=== PATIENT | female | born 2000 | race African-American/Black ===

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

== ENCOUNTER 2018-09-19 22:19 | Emergency (ER) | payer MEDICAID, OTHER ==
[2018-09-19] MEDS ORDERED: Ondansetron ODT 4 MG TAB ONE (22:45)
[2018-09-19] MEDS ORDERED: Loperamide HCl 2 MG CAP ONE (22:54)
[2018-09-19 23:06] LABS: Pregu Control Background? CLEAR/WHITE (CLR/WHITE); Pregu Control Bar Appear? YES (CONTROL BAR)
[2018-09-19 23:07] LABS: Pregnancy Test - Urine (BHCG) Negative (Negative)
== END 2018-09-19 23:15 | disposition home or self-care (01) ==
LOC: NAV ERS 22:19
DX: R11.2 Nausea with vomiting, unspecified (principal); R19.7 Diarrhea, unspecified; I10 Essential (primary) hypertension
CPT/HCPCS: 81025; 96374; Q0162

== ENCOUNTER 2018-10-12 09:46 | Emergency (ER) | payer OTHER ==
[2018-10-12] MEDS ORDERED: Ibuprofen 800 MG TAB ONE (10:53)
[2018-10-12] MEDS ORDERED: Benzonatate 100 MG CAP ONE (10:54)
== END 2018-10-12 11:46 | disposition home or self-care (01) ==
LOC: NAV ERS 09:46
DX: B34.9 Viral infection, unspecified (principal)
CPT/HCPCS: 87081; 87430; 99283

== ENCOUNTER 2018-11-16 18:17 | Emergency (ER) | payer OTHER | END 2018-11-16 18:48 | disposition home or self-care (01) | LOC: NAV ERS 18:17 | DX: S33.5XXA Sprain of ligaments of lumbar spine, initial encounter (principal); I10 Essential (primary) hypertension; X50.9XXA Other and unspecified overexertion or strenuous movements or postures, initial encounter | CPT/HCPCS: 99283 ==

== ENCOUNTER 2019-07-19 19:11 | Emergency (ER) | payer OTHER, SELFPAY ==
[2019-07-19] MEDS ORDERED: Ondansetron PF 4 MG/2 ML Vial ONE (19:36)
[2019-07-19] MEDS ORDERED: Sodium Chloride 0.9% 1,000 ML ONE (19:36)
[2019-07-19 20:15] LABS: BHCG - Serum Negative (NEGATIVE); Pregs Control Bar Appear? YES (CONTROL BAR)
[2019-07-19 20:16] LABS: ALT (SGPT) 13 U/L (8-55); AST (SGOT) 16 U/L (5-34); Albumin 4.6 g/dL (3.5-5.0); Alkaline Phosphatase 92 U/L (40-150); Anion Gap 17 mmol/L (10-20); BUN (Urea Nitrogen) 13 mg/dL (7.0-18.7); Bilirubin, Total 0.4 mg/dL (0.2-1.2); Calc. Creatinine Clearance 0 mL/min (70-130); Carbon Dioxide 21 mmol/L (22-29); Chloride 105 mmol/L (98-107); Estimated GFR-MDRD Greater than 90; Globulin 3.6 g/dL (2.4-3.5); Glucose 97 mg/dL (70-105); Lipase 4 U/L (8-78); Potassium 3.9 mmol/L (3.5-5.1); Protein, Total 8.2 g/dL (6.0-8.3); Sodium 139 mmol/L (136-145)
[2019-07-19] MEDS ORDERED: diphenhydrAMINE 50 MG/ML VIAL ONE (20:21)
[2019-07-19 20:22] LABS: Hemoglobin 11.9 g/dL (12.0-16.0); Mean Corpuscular HGB CONC 30.6 g/dL (32.0-36.0); Mean Corpuscular Hemoglobin 24.7 pg (27.0-31.0); Mean Corpuscular Volume 80.7 fL (78.0-98.0); Mean Platelet Volume 9.3 fL (7.4-10.4); Platelet Count 211 thou/uL (130-400); Red Blood Cell (RBC) Count 4.82 mill/uL (4.20-5.40); White Blood Cell (WBC) Count 10.3 thou/uL (4.8-10.8)
[2019-07-19] MEDS ORDERED: Lorazepam 2 MG/ML VIAL ONE (20:27)
[2019-07-19 20:28] LABS: Eosinophils 3 % (0-10); Lymphocytes 15 % (21-51); MDiff Complete? YES; Monocytes 4 % (0-10); Neutrophil 78 % (42-75); Platelet Morphology Comment Appears Adequate; RBC Morphology Normal
[2019-07-19 21:24] LABS: Bilirubin Negative (Negative); Blood, Urine Trace (Negative); Clarity Clear (Clear); Glucose, Urine (Dipstick) Negative (Negative); Leukocyte Negative (Negative); Nitrite Negative (Negative); Protein, Urine (Dipstick) Negative (Neg-Trace); Urobilinogen 0.2 mg/dL (Less than 2)
[2019-07-19 21:29] LABS: Bacteria/HPF None Seen HPF (None Seen); RBC/HPF 0-3 HPF (0-3)
[2019-07-19 21:30] LABS: Squamous Epithelial 0-3 HPF (0-3); WBC/HPF 0-3 HPF (0-3)
[2019-07-19] MEDS ORDERED: Ondansetron ODT 4 MG TAB ONE (21:47)
== END 2019-07-19 21:52 | disposition home or self-care (01) ==
LOC: NAV ERS 19:11
DX: H81.10 Benign paroxysmal vertigo, unspecified ear (principal); R11.2 Nausea with vomiting, unspecified; I10 Essential (primary) hypertension
CPT/HCPCS: 80053; 81003; 81015; 83690; 84703; 85025; 93005; 94760; 96361; 96374; 96375; J1200; J2060; J2405; J7050; Q0162

== ENCOUNTER 2019-09-14 18:40 | Emergency (ER) | payer SELFPAY ==
--- NOTE | 2019-09-14 20:05 | RAD ---
RIGHT SHOULDER THREE VIEWS: HISTORY: Pain. Injury. FINDINGS: No fracture or dislocation. AC joint normally aligned. IMPRESSION: No acute abnormality. POS: [facility]
== END 2019-09-14 19:28 | disposition home or self-care (01) ==
LOC: NAV ERS 18:40
DX: S43.401A Unspecified sprain of right shoulder joint, initial encounter (principal); I10 Essential (primary) hypertension; Y04.0XXA Assault by unarmed brawl or fight, initial encounter

== ENCOUNTER 2021-08-04 10:54 | Emergency (ER) | payer SELFPAY ==
[2021-08-06 00:15] LABS: SARS-CoV-2 PCR by NAA Not Detected (NotDetected)
== END 2021-08-04 11:55 | disposition home or self-care (01) ==
LOC: NAV ERS 10:54
DX: J06.9 Acute upper respiratory infection, unspecified (principal); Z20.822 Contact with and (suspected) exposure to COVID-19; I10 Essential (primary) hypertension
CPT/HCPCS: 99283; U0003; U0005

== ENCOUNTER 2022-11-24 09:48 | Emergency (ER) | payer MEDICAID, SELFPAY ==
[2022-11-24] MEDS ORDERED: Ondansetron PF 4 MG/2 ML Vial ONE (10:23)
[2022-11-24] MEDS ORDERED: Sodium Chloride 0.9% 1,000 ML ONE (10:23)
[2022-11-24 10:25] LABS: #Basophils 0.1 thou/uL (0.0-0.2); #Eosinphils 0.2 thou/uL (0.0-0.7); #Lymphocytes 1.2 thou/uL (1.20-3.40); #Monocytes 0.6 thou/uL (0.11-0.59); #Neutrophils 5.7 thou/uL (1.40-6.50); %Eosinophils 2.8 % (0.0-10.0); %Lymphocytes 15.8 % (21.0-51.0); %Monocytes 7.6 % (0.0-10.0); %Neutrophils 72.7 % (42.0-75.0); Hemoglobin 11.4 g/dL (12.0-16.0); Mean Corpuscular HGB CONC 31.8 g/dL (32.0-36.0); Mean Corpuscular Hemoglobin 26.3 pg (27.0-31.0); Mean Corpuscular Volume 82.9 fl (78.0-98.0); Mean Platelet Volume 9.9 fL (7.4-10.4); Platelet Count 174 10x3/uL (130-400); RBC Distribution Width 11.4 % (11.5-14.5); Red Blood Cell (RBC) Count 4.35 mill/uL (4.20-5.40); White Blood Cell (WBC) Count 7.8 10x3/uL (4.8-10.8)
[2022-11-24 10:44] LABS: ALT (SGPT) 19 U/L (8-55); AST (SGOT) 17 U/L (5-34); Albumin 3.6 g/dL (3.5-5.0); Alkaline Phosphatase 73 U/L (40-110); Anion Gap 14 mmol/L (10-20); BUN (Urea Nitrogen) 7 mg/dL (7.0-18.7); Bilirubin, Total 0.3 mg/dL (0.2-1.2); Calc. Creatinine Clearance 0 mL/min (70-130); Calcium 9.1 mg/dL (7.8-10.44); Carbon Dioxide 20 mmol/L (22-29); Chloride 106 mmol/L (98-107); Estimated GFR 122; Globulin 3.8 g/dL (2.4-3.5); Glucose 84 mg/dL (70-105); Potassium 3.5 mmol/L (3.5-5.1); Protein, Total 7.4 g/dL (6.0-8.3); Sodium 136 mmol/L (136-145)
== END 2022-11-24 11:35 | disposition home or self-care (01) ==
LOC: NAV ERS 09:48
DX: O21.0 Mild hyperemesis gravidarum (principal); O99.511 Diseases of the respiratory system complicating pregnancy, first trimester; J06.9 Acute upper respiratory infection, unspecified; O10.911 Unspecified pre-existing hypertension complicating pregnancy, first trimester; Z3A.13 13 weeks gestation of pregnancy; Z20.822 Contact with and (suspected) exposure to COVID-19
CPT/HCPCS: 80053; 85025; 87804; 96361; 96374; J2405; J7050; U0003; U0005

== ENCOUNTER 2023-11-07 19:20 | Emergency (ER) | payer BC, OTHER | END 2023-11-07 20:09 | disposition home or self-care (01) | LOC: NAV ERS 19:20 | DX: J02.0 Streptococcal pharyngitis (principal); I10 Essential (primary) hypertension | CPT/HCPCS: 87430; 96372; 99283 ==

== ENCOUNTER 2023-12-05 15:48 | Emergency (ER) | payer BC, OTHER | END 2023-12-05 17:35 | disposition home or self-care (01) | LOC: NAV ERS 15:48 | DX: K59.00 Constipation, unspecified (principal); I10 Essential (primary) hypertension | CPT/HCPCS: 99283 ==

== ENCOUNTER 2024-06-29 14:13 | Outpatient (CLI) | payer BC, OTHER | END 2024-06-29 14:14 | disposition home or self-care (01) | LOC: NAV RAD 14:13 | PROVIDERS: ATTEND Family Medicine | DX: S39.012A Strain of muscle, fascia and tendon of lower back, initial encounter (principal); M54.6 Pain in thoracic spine | CPT/HCPCS: 72072; 72100 ==

== ENCOUNTER 2025-02-18 12:10 | Outpatient (CLI) | payer BC | END 2025-02-18 12:11 | disposition home or self-care (01) | LOC: NAV RAD 12:10 | PROVIDERS: ATTEND Family Medicine | DX: K59.09 Other constipation (principal); R19.5 Other fecal abnormalities | CPT/HCPCS: 74019 ==